=== PATIENT | male | born 1960 | race Caucasian/White ===

== ENCOUNTER 2019-06-13 14:12 | Emergency (ER) | payer SELFPAY ==
[~2019-06-13] VITALS: Ht 167.6 cm; Wt 90.7 kg
[2019-06-13] MEDS ORDERED: methylPREDNISolone SOD SUCC 125 MG/2 ML VL IM ONE (17:15)
[2019-06-13 17:18] VITALS: BP 164/97
== END 2019-06-13 17:24 | disposition home or self-care (01) ==
LOC: ER 14:12
DX: L25.9 Unspecified contact dermatitis, unspecified cause (principal); F17.210 Nicotine dependence, cigarettes, uncomplicated; Z90.89 Acquired absence of other organs; Z76.0 Encounter for issue of repeat prescription
CPT/HCPCS: 96372; 99283; J2930

== ENCOUNTER 2022-06-23 14:47 | Emergency (ER) | payer MEDICAID, OTHER ==
[~2022-06-23] VITALS: Ht 167.6 cm; Wt 82.0 kg
[2022-06-23 15:29] VITALS: BP 152/92
== END 2022-06-23 23:31 | disposition left against medical advice (07) ==
LOC: ER 14:47
DX: R04.0 Epistaxis (principal); Z53.21 Procedure and treatment not carried out due to patient leaving prior to being seen by health care provider